=== PATIENT | female | born 1970 | race African-American/Black ===

== ENCOUNTER 2022-01-25 18:23 | Emergency (ER) | payer MEDICAID ==
[~2022-01-25] VITALS: Ht 167.6 cm; Wt 150.0 kg
[~2022-01-25 18:23] MED LIST: ASPI-1079 PO; FLUT1DIS3 IH; FURO-152 PO; FURO40TA5; HYDR1TAB4 PO; HYDROCHLOROTHIAZIDE PO; METF-416; METF1000; POTA8TAB4; PXPC5 PO; SIMV10TA2; proair BU
[2022-01-25 19:29] LABS: BASOPHILS % 0.4 % (0.0-2.0); EOSINOPHILS % 1.1 % (0.0-5.0); HEMATOCRIT. 49.6 % (36.0-48.0); HEMOGLOBIN. 15.1 g/dL (12.0-16.0); LYMPHOCYTES % 41.1 % (20.0-50.0); MEAN CORPUSCULAR HEMOGLOBIN 23.3 pg (28.0-32.0); MEAN CORPUSCULAR VOLUME 76.3 fL (81.0-99.0); MEAN PLATELET VOLUME 9.2 fl (7.4-10.4); MONOCYTES % 12.4 % (2.0-8.0); PLATELET 226 x1000/uL (130-400); RED CELL DISTRIBUTION WIDTH 22.7 % (11.6-14.6)
[2022-01-25 19:36] LABS: CHLORIDE 94 mEq/L (98-107)
[2022-01-25 19:40] LABS: ETHANOL BLOOD < 10 mg/dL
[2022-01-25 19:50] LABS: PLATELET ESTIMATE INCREASED
[2022-01-26] MEDS ORDERED: IPRATROPIUM BROMIDE (0.02%) 0.5MG/2.5ML NEB HHN STA (01:14)
[2022-01-26] MEDS ORDERED: ALBUTEROL (0.083%) 2.5MG/3ML NEB HHN STA (01:14)
[2022-01-26] MEDS ORDERED: PREDNISONE 20MG TABLET PO STA (01:14)
[2022-01-26] MEDS ORDERED: MAGNESIUM 2 G PREMIX 50 ML IV ONE (01:15)
[2022-01-26] MEDS ORDERED: PRED10TA23 MT (04:01)
[2022-01-26 04:30] VITALS: BP 130/83
== END 2022-01-26 04:40 | disposition home or self-care (01) ==
LOC: ER 18:23
DX: J45.901 Unspecified asthma with (acute) exacerbation (principal); F17.290 Nicotine dependence, other tobacco product, uncomplicated; I11.0 Hypertensive heart disease with heart failure; I50.9 Heart failure, unspecified; E11.9 Type 2 diabetes mellitus without complications
CPT/HCPCS: 36415; 71045; 80053; 80320; 83690; 83880; 84484; 85025; 93005; 94640; 96365; 99285; 99406; J3475; J7512; Z7610; G0480